=== PATIENT | male | born 2000 | race African-American/Black ===

== ENCOUNTER 2024-02-08 19:15 | Emergency (ER) | payer BC ==
[~2024-02-08] VITALS: Ht 177.8 cm; Wt 131.8 kg
[2024-02-08 19:25] VITALS: TEMP 98.5
[2024-02-08] MEDS ORDERED: NS 1,000 ML IV ONE (21:30)
[2024-02-08] MEDS ORDERED: Morphine 4 MG/ML VIAL IV PRN (21:30)
[2024-02-08] MEDS ORDERED: Ondansetron 4 MG/2 ML VIAL IV PRN (21:30)
[2024-02-08 21:44] LABS: BASO % 0.2 % (0.0-2.0); GRAN # 11.6 K/mm3 (1.4-6.5); GRAN % 87.6 % (42.2-75.2); HEMATOCRIT 49.3 % (42.0-52.0); HEMOGLOBIN 17.7 g/dl (13.5-18.0); LYMPH # 0.9 K/mm3 (1.2-3.4); LYMPH % 6.9 % (20.0-51.0); MEAN CELL VOLUME 87 fl (80.0-100.0); MEAN CORPUSCULAR HEMOGLOBIN 31 pg (27-31); MEAN CORPUSCULAR HGB CONC 36 g/dl (33.0-37.0); MEAN PLATELET VOLUME 10.2 fl (7.4-10.4); MONO # 0.6 K/mm3 (0.1-0.6); MONO % 4.7 % (1.7-9.3); PLATELET COUNT 294 K/mm3 (130-400); RED BLOOD COUNT 5.65 M/mm3 (4.20-5.60)
[2024-02-08 21:59] LABS: ALBUMIN 4.6 gm/dL (3.5-5.0); BILIRUBIN,TOTAL 1.3 mg/dL (0.2-1.2); CALCIUM 10.4 mg/dL (8.4-10.2); CREATININE, serum 1.12 mg/dL (0.72-1.25); POTASSIUM 3.8 mmol/L (3.5-4.5); TOTAL PROTEIN 8.2 gm/dL (6.2-8.1)
[2024-02-08] MEDS ORDERED: Iohexol 300 - 100 ML VIAL IV ONE (22:18)
[2024-02-08] MEDS ORDERED: NS 50 ML IV SCH (22:18)
[2024-02-08] MEDS ORDERED: Pantoprazole 40 MG in NS 10 ML IV ONE (23:00)
[2024-02-09] MEDS ORDERED: NORCO 325 MG-51 TAB PO (00:13)
[2024-02-09] MEDS ORDERED: ZOFRAN ODT4 MG PO (00:13)
[2024-02-09 00:21] VITALS: BP 135/85; PULSE 80
== END 2024-02-09 00:24 | disposition home or self-care (01) ==
LOC: COL.ER 19:15
PROVIDERS: Personal Emergency Response Attendant
DX: R11.2 Nausea with vomiting, unspecified (principal); R19.7 Diarrhea, unspecified; R10.84 Generalized abdominal pain
CPT/HCPCS: C9113; J2270; J2405; J7030; Q9967

== ENCOUNTER 2024-03-12 12:22 | Emergency (ER) | payer BC ==
[~2024-03-12] VITALS: Ht 177.8 cm; Wt 136.4 kg
[~2024-03-12 12:22] MED LIST: NORCO 325 MG-51 TAB PO; ZOFRAN ODT4 MG PO
[2024-03-12 12:29] VITALS: TEMP 98
[2024-03-12] MEDS ORDERED: NS 1,000 ML IV ONE (12:45)
[2024-03-12] MEDS ORDERED: droPERidol 2.5 MG/ML 2 ML VIAL IV ONE (12:45)
[2024-03-12 12:53] LABS: BASO % 0.6 % (0.0-2.0); EOS # 0.1 K/mm3 (0.0-0.7); EOS % 1.1 % (0.0-4.0); GRAN # 4.9 K/mm3 (1.4-6.5); GRAN % 68.8 % (42.2-75.2); HEMATOCRIT 46.4 % (42.0-52.0); HEMOGLOBIN 16.3 g/dl (13.5-18.0); LYMPH # 1.5 K/mm3 (1.2-3.4); LYMPH % 21.5 % (20.0-51.0); MEAN CELL VOLUME 89 fl (80.0-100.0); MEAN CORPUSCULAR HEMOGLOBIN 31 pg (27-31); MEAN CORPUSCULAR HGB CONC 35 g/dl (33.0-37.0); MEAN PLATELET VOLUME 10.6 fl (7.4-10.4); MONO # 0.5 K/mm3 (0.1-0.6); MONO % 6.7 % (1.7-9.3); PLATELET COUNT 206 K/mm3 (130-400); REDCELL DISTRIBUTION WIDTH-CV 12.5 % (11.5-14.5)
[2024-03-12 13:08] LABS: ALBUMIN 4.3 g/dL (3.5-5.0); BILIRUBIN,TOTAL 0.7 mg/dL (0.2-1.2); CALCIUM 9.9 mg/dL (8.4-10.2); CREATININE, serum 1.01 mg/dL (0.72-1.25); POTASSIUM 4.5 mEq/L (3.5-4.5); TOTAL PROTEIN 7.8 g/dl (6.2-8.1)
[2024-03-12] MEDS ORDERED: Ondansetron 4 MG/2 ML VIAL IV ONE (14:30)
[2024-03-12 14:38] LABS: TRICYCLIC ANTIDEPRESS URINE NEGATIVE (NEGATIVE)
[2024-03-12] MEDS ORDERED: PHENERGAN 25 TA25 MG PO (14:57)
[2024-03-12 15:02] VITALS: BP 130/93; PULSE 93
== END 2024-03-12 15:09 | disposition home or self-care (01) ==
LOC: COL.ER 12:22
PROVIDERS: Physician Assistant
DX: F12.188 Cannabis abuse with other cannabis-induced disorder (principal); R11.2 Nausea with vomiting, unspecified
CPT/HCPCS: J1790; J2405; J7030

== ENCOUNTER 2024-03-19 21:34 | Emergency (ER) | payer BC ==
[~2024-03-19] VITALS: Ht 177.8 cm; Wt 136.4 kg
[~2024-03-19 21:34] MED LIST changes: +PHENERGAN 25 TA25 MG PO
[2024-03-19 21:41] VITALS: TEMP 99.5
[2024-03-19] MEDS ORDERED: NS 1,000 ML IV ONE ×2 (22:00→23:30)
[2024-03-19] MEDS ORDERED: droPERidol 2.5 MG/ML 2 ML VIAL IV ONE (22:00)
[2024-03-19 22:18] LABS: BASO # 0.1 K/mm3 (0.0-0.2); BASO % 0.6 % (0.0-2.0); EOS % 0.2 % (0.0-4.0); GRAN # 7.5 K/mm3 (1.4-6.5); GRAN % 63.2 % (42.2-75.2); HEMATOCRIT 48.1 % (42.0-52.0); HEMOGLOBIN 17.3 g/dl (13.5-18.0); LYMPH # 3.6 K/mm3 (1.2-3.4); LYMPH % 29.8 % (20.0-51.0); MEAN CELL VOLUME 87 fl (80.0-100.0); MEAN CORPUSCULAR HEMOGLOBIN 31 pg (27-31); MEAN CORPUSCULAR HGB CONC 36 g/dl (33.0-37.0); MEAN PLATELET VOLUME 10.2 fl (7.4-10.4); MONO # 0.7 K/mm3 (0.1-0.6); MONO % 5.7 % (1.7-9.3); PLATELET COUNT 267 K/mm3 (130-400); RED BLOOD COUNT 5.52 M/mm3 (4.20-5.60); REDCELL DISTRIBUTION WIDTH-CV 12.6 % (11.5-14.5)
[2024-03-19 22:36] LABS: ALBUMIN 4.6 g/dL (3.5-5.0); BILIRUBIN,TOTAL 1.5 mg/dL (0.2-1.2); C-REACTIVE PROTEIN 1.17 mg/dL (0.00-0.50); CALCIUM 10.7 mg/dL (8.4-10.2); CREATININE, serum 1.3 mg/dL (0.72-1.25); POTASSIUM 4.7 mEq/L (3.5-4.5); TOTAL PROTEIN 8.4 g/dl (6.2-8.1)
[2024-03-19] MEDS ORDERED: Ondansetron 4 MG/2 ML VIAL IV ONE (23:30)
[2024-03-20] MEDS ORDERED: ZOFRAN ODT4 MG PO (01:10)
[2024-03-20 01:18] VITALS: BP 1516/94; PULSE 107
== END 2024-03-20 01:18 | disposition home or self-care (01) ==
LOC: COL.ER 21:34
PROVIDERS: Nurse Practitioner
DX: R11.2 Nausea with vomiting, unspecified (principal)
CPT/HCPCS: J1790; J2405; J7030

== ENCOUNTER → 2024-03-24 | Outpatient (CLI) | payer BC | LOC: COL.RAD 09:57 | DX: R74.8 Abnormal levels of other serum enzymes (principal) ==